=== PATIENT | male | born 2000 | race Caucasian/White ===

== ENCOUNTER 2021-07-06 06:06 | Observation (INO) ==
--- NOTE | 2021-07-06 06:22 | Emergency Department Note ---
Impression & Plan Chest pain, Elevated troponin, Acute viral myocarditis ED Provider Note Provider: Lokesh Olivier MD DATE OF SERVICE: 07/06/2021 CHIEF COMPLAINT: Chest pains HISTORY OF PRESENT ILLNESS: Patient is a 20-year-old otherwise healthy gentleman presenting here today reporting the onset of chest pain in the middle of his chest with fever and a cough and stuffy nose starting yesterday. Took some i buprofen around this morning without real improvement. 7 out of 10 pain. Nonpleuritic in nature. No other radiation reported of the pain. States he was tested for Covid yesterday but is unsure of the results at this time. Seen at urgent care for this but did not have other testing done. Reports no travel. States some myalgias in his legs at times. Pain started 2 days ago and central chest is worsened some since then. Having some sweats prickly at night night sweats over the last day or 2. Reports temperature as high 102.8 Fahrenheit. As you some ibuprofen at times with improvement of this. Denies nausea, vomiting, diarrhea, or abdominal pain. Denies shortness of breath. A little bit of a stuffy nose and some slight headaches at times. Patient reports his son has had a little bit of cold symptoms but is doing well. No other sick contacts reported. Patient reports he has been tossing and turning a little bit at night and not sleeping the best. No urinary symptoms reported. No rashes reported. REVIEW OF SYSTEMS: A total of 10 review of systems was obtained and negative except as stated above in the HPI. PAST MEDICAL HISTORY: As noted above MEDICATIONS: Occasionally [id number] allergy medicine. SOCIAL HISTORY: former smoker now Vaping trying to quit altogether PHYSICAL EXAM: GENERAL: alert and oriented in no acute distress on stretcher Head: normocephalic and atraumatic EYES: No injection, discharge or icterus. NECK: Trachea midline. Supple. ENT: Mucous membranes pink and moist. LUNGS: Airway patent. No retractions. Breath sounds clear with good air entry bilaterally. HEART: Regular rate and rhythm. No chest wall tenderness ABDOMEN: Soft and non-tender, without guarding or rebound. SKIN: Acyanotic, warm, dry, without rashes EXTREMITIES: Without swelling, tenderness or deformity. In particular there is no calf swelling or Homans' sign bilaterally. NEUROLOGICAL: No focal deficits. No aphasia. No facial droop or slurred speech. Ambulatory. EK bpm normal sinus rhythm. No PVC or PAC. No acute ST segment elevations or depression. QTC 408. CONTINUOUS CARDIAC MONITORING: was ordered and showed a heart rate of 80-100s bpm in NSR and sinurs tachycardia Patient's laboratory studies and imaging reviewed. Differential includes Cardiac ischemia, aortic dissection, pulmonary embolism, pneumothorax, pneumonia, pericarditis, myocarditis, esophageal rupture, GERD, cholecystitis, pancreatitis, musculoskeletal, as well as other pathologies. IMPRESSION/MEDICAL DECISION MAKING: Patient presents with 2 days of some central chest pain and fevers and myalgias with some stuffy nose and headache. Patient does not appear meningitic. Patient is afebrile upon arrival but took some ibuprofen several hours prior to arrival. Patient was tested for Covid yesterday at urgent care and supposedly a rapid test but did not receive the result. He reports to me that he does not think he has and is not vaccinated. Does not want retested at the current time. X-ray and basic labs were obtained. EKG is reassuring without concerning arrhythmia or real concerning ischemic findings. Chest pain has been present for 2 to 3 days and troponin was completed and should find any possible underlying cardiac injury. Given his risk factors I doubt this is ACS. Not having positional symptoms concerning for pericarditis. Given some IV fluids as he is just slightly tachycardic and a very small amount of Toradol has he has some pain. Chest x-ray per my review and radiology without evidence of pneumonia, pneumothorax, pleural effusion, pulmonary edema, mass, or cardiomegaly. Blood work without significant leukocytosis or anemia. Platelet count within normal limits. No significant electrolyte abnormality noted. AST slightly elevated at 44 but ALT within normal limits. Doubt acute hepatitis. Lipase normal and I doubt pancreatitis given this. Question some viral inflammatory changes causing the slightly elevated AST. Not having significant myalgias to be concerned for rhabdomyolysis at this time. Troponin returned elevated at 5.1. To exclude help exclude PE, a D-dimer was sent and positive as such a CT of the chest will be completed. CT negative for PE per radiology report. Patient again did not want Covid testing today as he had a pending test from yesterday. Discussed with him likely viral syndrome such as Covid is high on my list of likely diagnosis causing the symptoms. Given his positive troponin dis cussed with cardiology. Possibly could represent a myocarditis. He is hemodynamically stable. Discussed with the patient the need to complete Covid testing at this time and need for further evaluation care here at the hospital. Hospitalist was contacted. Cardiology was alerted although they were in the [facility] and will call back. They later agreed with this plan. Will defer empiric anticoagulation as I doubt ACS. Covid test later returns negative likely but entero-/rhinovirus is positive. Did initially updated patient's mother via phone with the findings recommendation for further care here. DIAGNOSIS: Chest pain, elevated troponin, viral myocarditis DISPOSITION: Hospitalist to evaluate Patient was agreeable with this plan. Critical Care I have personally spent 32 minutes of critical care time in the direct management of this patient. This includes bedside care, interpretation of diagnostic studies, and testing, discussion with consultants, patient, and family members, and other required patient management activities. These 32 minutes is in excess of all separately billable procedures. Past Med/Surg History Family History (Updated 07/06/21 @ 10:52 by DAMARIS Vergara) Other Family history non-contributory Social History Smoking Status: Current every day smoker Tobacco Type: E-cigarettes / Vaping Feels Safe at Home: Yes Allergies Allergies Allergy/AdvReac Type Severity Reaction Status Date / Time No Known Allergies Allergy Unknown Verified 07/06/21 08:25 Home Meds Home Medications Medication Instructions Recorded Confirmed No Known Home Medications 07/06/21 07/06/21 Results & Data (ED) Vital Signs Vital Signs - 24 hr 07/06/21 06:09 07/06/21 06:22 07/06/21 06:30 Temperature 36.9 C Temperature Source Oral Pulse Rate 103 H 87 Pulse Rate from SpO2 Sensor 88 Respiratory Rate 16 12 Respiratory Effort / Characteristics Non-Labored Spontaneous Respiratory Depth Normal Blood Pressure 124/81 126/78 Blood Pressure Mean 95 94 Pulse Oximetry 97 98 99 Oxygen Delivery Method Room Air Room Air Room Air Sepsis Recent Fever Within 48 Hours No Sepsis New/Unexplained Change in Mental Status No Sepsis Action Taken by Nursing No Action Required 07/06/21 07:00 07/06/21 07:30 07/06/21 08:01 Temperature Temperature Source Pulse Rate 87 78 Pulse Rate from SpO2 Sensor 70 88 78 Respiratory Rate 20 20 Respiratory Effort / Characteristics Respiratory Depth Blood Pressure 119/76 118/76 119/88 Blood Pressure Mean 90 90 98 Pulse Oximetry 99 100 97 Oxygen Delivery Method Room Air Room Air Room Air Sepsis Recent Fever Within 48 Hours Sepsis New/Unexplained Change in Mental Status Sepsis Action Taken by Nursing 07/06/21 08:30 07/06/21 09:00 Temperature Temperature Source Pulse Rate 80 86 Pulse Rate from SpO2 Sensor 82 83 Respiratory Rate 22 21 Respiratory Effort / Characteristics Respiratory Depth Blood Pressure 125/84 133/91 Blood Pressure Mean 97 105 Pulse Oximetry 99 98 Oxygen Delivery Method Room Air Room Air Sepsis Recent Fever Within 48 Hours Sepsis New/Unexplained Change in Mental Status Sepsis Action Taken by Nursing Laboratory Data Result diagrams: 07/06/21 Unknown 07/06/21 Unknown Lab Results 07/06/21 07/06/21 07/06/21 Range/Units 06:45 09:52 09:52 ESR 36 H (0-15) mm/hr Adenovirus (PCR) Not Detected (NotDetected) B. pertussis DNA (PCR) Not Detected (NotDetected) B.parapertussis DNA PCR Not Detected (NotDetected) C. pneumoniae DNA (PCR) Not Detected (NotDetected) Coronavirus OC43 (PCR) Not Detected (NotDetected) Coronavirus HKU1 (PCR) Not Detected (NotDetected) Coronavirus 229E (PCR) Not Detected (NotDetected) COVID-19 Eval Order RESPNP at [facility] SARS-CoV-2 (PCR) Not Detected (NotDetected) Coronavirus NL63 (PCR) Not Detected (NotDetected) Human Metapneumovir PCR Not Detected (NotDetected) Influenza Type A (PCR) Not Detected (NotDetected) Influenza Type B (PCR) Not Detected (NotDetected) M. pneumoniae (PCR) Not Detected (NotDetected) Parainfluenza 1 (PCR) Not Detected (NotDetected) Parainfluenza 2 (PCR) Not Detected (NotDetected) Parainfluenza 3 (PCR) Not Detected (NotDetected) Parainfluenza 4 (PCR) Not Detected (NotDetected) RSV (PCR) Not Detected (NotDetected) Entero/Rhino (PCR) DETECTED A* (NotDetected) Administered Medications Pantoprazole Sodium (Pantoprazole 40 Mg Tab) 40 mg PO DAILY SHANIKA Stop: 10/10/21 10:59 Last Admin: 07/06/21 11:13 Dose: 40 mg Documented by: [id number] Discontinued Medications Sodium Chloride (Nss 1000ml) 1,000 mls @ 999 mls/hr IV .Q1H1M ONE Stop: 07/06/21 07:33 Last Infusion: 07/06/21 07:45 Dose: 0 mls/hr Documented by: [id number] Admin: 07/06/21 06:42 Dose: 999 mls/hr Documented by: [id number] Ibuprofen (Ibuprofen 800 Mg Tab) 800 mg PO NOW STA Stop: 07/06/21 10:25 Last Admin: 07/06/21 11:12 Dose: 800 mg Documented by: [id number] Ioversol (Optiray 320 125ml) 119 ml IV ONCE ONE Stop: 07/06/21 09:36 Last Admin: 07/06/21 09:36 Dose: 119 ml Documented by: [id number] Ketorolac Tromethamine (Ketorolac Tromethamine 15 Mg/Ml Vial) 10 mg IV NOW ONE Stop: 07/06/21 06:34 Last Admin: 07/06/21 06:42 Dose: 10 mg Documented by: [id number] Imaging Data Radiologist's Impression: Chest X-Ray 07/06/21 06:22 XR chest 1V portable INDICATION: MN ^Y ^Chest Pain . TECHNIQUE: Single frontal radiograph of the chest was obtained. Comparison: None available at the time of this dictation. FINDINGS: No lines and tubes are seen. The cardiomediastinal silhouette is normal. The lungs are clear. No evidence of pleural effusion or pneumothorax. IMPRESSION: No acute chest disease. ACT 112: Negative or not required by law. Electronically signed by: Estevan Butler M.D. 07/06/2021 7:02 AM Chest CTA 07/06/21 08:08 CT angio chest PE protocol INDICATION: MN ^b4b ^PE, CP, Elevated trop and dimer. TECHNIQUE: Multidetector row helical CT of the chest was performed. Coronal and sagittal reformations were obtained. Automated dose lowering techniques and/or adjustment according to patient size were utilized for this exam. Comparison: None available at the time of this dictation. FINDINGS: Lungs and pleura: Normal. Heart and pericardium: Heart size is normal. No pericardial effusion. Vessels: No evidence of pulmonary embolism. Mediastinum and charlette: Unremarkable. Chest wall and lower neck: Subcentimeter thyroid nodules are noted which do not require follow-up by ACR criteria. Abdomen: Unremarkable. Bones: Degenerative changes in the thoracic spine. IMPRESSION: No evidence of pulmonary embolism. ACT 112: Negative or not required by law. Electronically signed by: Estevan Butler M.D. 07/06/2021 10:16 AM Discharge Plan Visit Data Chief Complaint: Chest Pain Stated Complaint: CHEST PAIN ED Provider: Lokesh Olivier Discharge Problem: Chest pain, Elevated troponin, Acute viral myocarditis Patient Disposition: Being Evaluated by Hospitalist Discharge Instructions Interventions: ED Discharge Assessment Last Done: 07/06/21 13:24
[2021-07-06] MEDS ORDERED: KETOROLAC TROMETHAMINE 15 MG/ML VIAL IV ONE (06:33)
[2021-07-06] MEDS ORDERED: SODIUM CHLORIDE 0.9% 1000ML 1,000 ML IV ONE (06:33)
[2021-07-06 06:53] LABS: Basophils # (auto) 0.02 K/uL (0-0.2); Basophils % (auto) 0.2 %; Hematocrit (blood only) 44.5 % (42-52); Hemoglobin 15.2 g/dL (14.0-18.0); Immature Granulocytes # (auto) 0.03 K/uL (0.00-0.02); Immature Granulocytes % (auto) 0.3 %; Lymphocytes # (auto) 1.42 K/uL (1.2-3.4); Lymphocytes % (auto) 14.7 %; Mean Corpuscular Hemoglobin 29.6 pg (25-34); Mean Corpuscular Hgb Conc 34.2 g/dL (32-36); Mean Corpuscular Volume 86.7 fL (80-100); Mean Platelet Volume 9.5 fL (7.4-10.4); Monocytes # (auto) 1.37 K/uL (0.11-0.59); Monocytes % (auto) 14.2 %; Neutrophils # (auto) 6.69 K/uL (1.4-6.5); Neutrophils % (auto) 69.6 %; Platelet Count 266 K/uL (130-400); RDW Coefficient of Variation 12.5 % (11.5-14.5); RDW Standard Deviation 39.9 fL (36.4-46.3); Red Blood Count 5.13 M/uL (4.7-6.1); White Blood Count 9.63 K/uL (4.8-10.8)
[2021-07-06 07:00] LABS: Albumin Level 3.5 gm/dl (3.4-5.0); BUN Creatinine Ratio 12.2 (10-20); Calcium 8.7 mg/dl (8.5-10.1); Est GFR (African American) 109.8 ml/min; Est GFR (Non-African American) 94.7 ml/min; Potassium 3.8 mmol/L (3.5-5.1)
--- NOTE | 2021-07-06 07:04 | XRay Report ---
XR chest 1V portable INDICATION: MN ^Y ^Chest Pain . TECHNIQUE: Single frontal radiograph of the chest was obtained. Comparison: None available at the time of this dictation. FINDINGS: No lines and tubes are seen. The cardiomediastinal silhouette is normal. The lungs are clear. No evid ence of pleural effusion or pneumothorax. IMPRESSION: No acute chest disease. ACT 112: Negative or not required by law. Electronically signed by: Estevan Butler M.D. 07/06/2021 7:02 AM
[2021-07-06 07:16] LABS: Albumin Globulin Ratio 0.9 (0.9-2); Bilirubin,Total 0.6 mg/dl (0.2-1); Total Protein 7.5 gm/dl (6.4-8.2); Troponin I 5.14 ng/ml (0-0.045)
[2021-07-06 08:06] LABS: Prothrombin Time 10.4 Seconds (9.0-12.0)
[2021-07-06 08:08] LABS: D Dimer 900 ug/L FEU (0-500)
[2021-07-06] MEDS ORDERED: OPTIRAY 320 125ml IV ONE (09:35)
--- NOTE | 2021-07-06 10:17 | CT Scan Report ---
CT angio chest PE protocol INDICATION: MN ^b4b ^PE, CP, Elevated trop and dimer. TECHNIQUE: Multidetector row helical CT of the chest was performed. Coronal and sagittal reformations were obtained. Automated dose lowering techniques and/or adjustment according to patient size were u tilized for this exam. Comparison: None available at the time of this dictation. FINDINGS: Lungs and pleura: Normal. Heart and pericardium: Heart size is normal. No pericardial effusion. Vessels: No evidence of pulmonary embolism. Mediastinum and charlette: Unremarkable. Chest wall and lower neck: Subcentimeter thyroid nodules are noted which do not require follow-up by ACR criteria. Abdomen: Unremarkable. Bones: Degenerative changes in the thoracic spine. IMPRESSION: No evidence of pulmonary embolism. ACT 112: Negative or not required by law. Electronically signed by: Estevan Butler M.D. 07/06/2021 10:16 AM
[2021-07-06] MEDS ORDERED: IBUPROFEN 800 MG TAB PO STA (10:24)
--- NOTE | 2021-07-06 10:59 | History & Physical Report ---
Date of Service July 06, 2021 Assessment & Plan (1) Chest pain: Plan: Pain in center of his chest sharp stabbing, improves with leaning forward viral pericarditis/myocarditis vs. rheumatologic vs. autoimmune - Motrin 800 mg PO now and then 800 mg PO TID scheduled - PPI while on NSAID - ESR slightly elevated, CRP- 6.87 - COVID- pending - BIOfire pending - WBC 9.63 with NLR: 3.5:1 - Monospot-rapid negative - Lyme pending - ECHO pending - NO abnormalities in hematologic cell lines noted at this time (2) Elevated troponin: Plan: As above - Add on CK - Troponin q6 with ECG - ECHO - Cardiology consult (3) DVT prophylaxis: Plan: SCDs and ambulation History of Present Illness Chief Complaint: Chest pain Primary Care Provider: hBarath Camarena MD 20 YOM with medical history of: back pain. Patient comes to the [facility] today for complaints of chest pain. The pain is located in the center of his chest and feels like a sharp stabbing pain, this does not get worse with activity, and at times worsens with deep inspiration. It was relieved with him leaning forward and decreased his pain from a 7 to a 1-2. He also took some Motrin last PM 500mg prior to bed that also decreased his pain and again at ~0500 this morning. Patient endorses some URI nasal congestion and drainage over the past week that also increased about 3-4 days ago and seems to be improving now. He has no other swollen or sore joints except for some chronic back pain that he has had for years. He has no recent travel. He has a son at home that had a slight fever last week but was also teething at that time. He lives with his parents and no one else is sick or having any symptoms that he knows of. 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 He doesn't know of anyone else there that is sick. He has no pets, and does not go out in the wilderness or noticed any ticks or other insect bites. He does not have his COVID vaccine. In the [facility] the patient had routine labs drawn to include a D- dimer, and Troponin. Troponin I was elevated at 5 and his D-dimer was elevated to 900, he had a CTA of the chest done, which did not have any acute PE or effusion, or enlarged lymph nodes. He had a ECG done with no dynamic changes. Hospitalist service was notified for admission. Patient had an ECHO performed in 2013- seems to be performed for syncope: that was normal without intracardiac defect or coarctation noted.Will obtain ECHO, added on respiratory viral panel to COVID, ESR, CRP pending, and monospot/EBV and Lyme. Patient will be placed on telemetry and continue work up. Will add Motrin 800mg PO now and then TID with PPI. Cardiology was consulted via [facility] Physician. Patient is not vaccinated for COVID and his COVID test on admission was negati ve. Allergies Allergy/AdvReac Type Severity Reaction Status Date / Time No Known Allergies Allergy Unknown Verified 07/06/21 08:25 Home Medications Medication Instructions Recorded Confirmed Type No Known Home Medications 07/06/21 07/06/21 History Past Med/Surg History Family History (Updated 07/06/21 @ 10:52 by DAMARIS Vergara) Other Family history non-contributory Social History Smoking Status: Current every day smoker Tobacco Type: E-cigarettes / Vaping Feels Safe at Home: Yes Review of Systems Review of Systems: REVIEW OF SYSTEMS: Constitutional: (+) fever, sweats or chills Eyes: No diplopia, no worsening or blurred vision ENT: (+) nasal congestion, normal hearing, no trouble swallowing Respiratory: No cough, sputum, dyspnea at rest or on exertion Cardiovascular: (+) chest pain, tightness or palpitations Abdomen: No pain, nausea, vomiting, diarrhea or constipation Musculoskeletal: No joint pain, calf pain, swelling Neurologic: No weakness, numbness/tingling, or balance problems Psychiatric: No anxiety or depression Skin: No rash or itch Physical Exam Physical Exam: PHYSICAL EXAM: General: awake, alert, no apparent distress Head: Normocephalic, atraumatic ENT: PERRLA, EOMI, no pharyngeal exudate, mucous membranes moist, no enlarged cervical lymphnoeds Neuro: AAO x 3, speech clear and appropriate, strength intact bilaterally 5/5, sensation intact and equal all extremities and dermatomes, no pronator drift Chest: equal rise and fall of the chest, no accessory muscle use, no heaves or thrills, Clear to auscultation, on room air, Cardiac: Regular rate and rhythm, telemetry reviewed-NSR no ectopy, S1S2 NO murmurs/rubs, skin warm dry, cap refill <3 seconds, peripheral pulses +2 no JVD, no edema GI: NABS x 4 quadrants, soft, nontender to palpation, no rebound, guarding or tenderness : Spontaneously voiding, no pain, no CVA tenderness Extremities: Normal inspection, no peripheral edema or erythema, calfs nontender to palpation Psych: Normal mood and affect Skin: no rash or erythema Results & Data Results & Data ([facility]) Vital Signs (Past 12 Hours) Vital Signs Temp Pulse Resp BP Pulse Ox 07/06/21 07:30 87 20 118/76 100 07/06/21 07:00 119/76 99 07/06/21 06:30 87 12 126/78 99 07/06/21 06:22 98 07/06/21 06:09 36.9 C 103 H 16 124/81 97 Laboratory Results Abnormal Labs 07/06/21 07/06/21 07/06/21 06:45 Unknown Unknown Neut # (Auto) 6.69 H [place] # (Auto) 1.37 H Immature Gran # (Auto) 0.03 H ESR 36 H D-Dimer 900 H* Glucose AST Troponin I C-Reactive Protein 07/06/21 07/06/21 Unknown Unknown Neut # (Auto) [place] # (Auto) Immature Gran # (Auto) ESR D-Dimer Glucose 119 H AST 44 H Troponin I 5.140 H* C-Reactive Protein 6.87 H Diagnostic Findings Chest X-Ray 07/06/21 06:22 XR chest 1V portable INDICATION: MN ^Y ^Chest Pain . TECHNIQUE: Single frontal radiograph of the chest was obtained. Comparison: None available at the time of this dictation. FINDINGS: No lines and tubes are seen. The cardiomediastinal silhouette is normal. The lungs are clear. No evidence of pleural effusion or pneumothorax. IMPRESSION: No acute chest disease. ACT 112: Negative or not required by law. Electronically signed by: Estevan Butler M.D. 07/06/2021 7:02 AM Chest CTA 07/06/21 08:08 CT angio chest PE protocol INDICATION: MN ^b4b ^PE, CP, Elevated trop and dimer. TECHNIQUE: Multidetector row helical CT of the chest was performed. Coronal and sagittal reformations were obtained. Automated dose lowering techniques and/or adjustment according to patient size were utilized for this exam. Comparison: None available at the time of this dictation. FINDINGS: Lungs and pleura: Normal. Heart and pericardium: Heart size is normal. No pericardial effusion. Vessels: No evidence of pulmonary embolism. Mediastinum and charlette: Unremarkable. Chest wall and lower neck: Subcentimeter thyroid nodules are noted which do not require follow-up by ACR criteria. Abdomen: Unremarkable. Bones: Degenerative changes in the thoracic spine. IMPRESSION: No evidence of pulmonary embolism. ACT 112: Negative or not required by law. Electronically signed by: Estevan Butler M.D. 07/06/2021 10:16 AM Medications Administered Discontinued Medications Sodium Chloride (Nss 1000ml) 1,000 mls @ 999 mls/hr IV .Q1H1M ONE Stop: 07/06/21 07:33 Last Infusion: 07/06/21 07:45 Dose: 0 mls/hr Documented by: [id number] Admin: 07/06/21 06:42 Dose: 999 mls/hr Documented by: [id number] Ioversol (Optiray 320 125ml) 119 ml IV ONCE ONE Stop: 07/06/21 09:36 Last Admin: 07/06/21 09:36 Dose: 119 ml Documented by: [id number] Ketorolac Tromethamine (Ketorolac Tromethamine 15 Mg/Ml Vial) 10 mg IV NOW ONE Stop: 07/06/21 06:34 Last Admin: 07/06/21 06:42 Dose: 10 mg Documented by: [id number] ECG Additional Comments: Normal sinus rhythm Early repolarization Normal ECG No previous ECGs available Code Status & VTE Plan Code Status CODE: FULL VTE: SCDs, ambulation VTE Prophylaxis Plan VTE Prophylaxis will be ordered: Yes Supervising Physician Co-Signing Physician Notes Patient seen and examined, chart reviewed, case discussed with Dru OCAMPO and I agree with the assessment and plan as above except as otherwise noted above. Jas is a 20-year-old male who presents with approximately 3 days of central chest pain which improved in the tripod position and some cold-like symptoms. No history of rheumatologic or autoimmune diseases. He has a son who was recently ill but thinks it may have been due to teething with molars coming in. No other sick contacts. He is not vaccinated against Covid. General: A&Ox3. NAD. Cooperative. HEENT: Atraumatic, normocephalic. Pulm: CTAB A&P. -wheezes, -rales, -rhonchi. Symmetrical chest rise. No increase work of breathing. No respiratory distress. Cardiac: RRR, -mrg. Radial pulses intact and symmetrical. Abdominal: Nontender, nondistended, soft. BS present. All labs and images reviewed Amadou is a 20-year-old male who presents with 3 days of cold-like symptoms and chest pain consistent with viral pericarditis/myocarditis with an elevated D-dimer and troponin. CTA negative for PE and without signs of pneumonia. Covid test negative on admission, viral panel positive for enterovirus/rhinovirus. Echo pending, troponin trended, EKG without ST segment changes, NSR. Patient to be observed overnight, follow troponin and echo results. Ibuprofen 800 mg 3 times daily until pain improves then taper over 2-4 weeks. Gastric prophylaxis with Protonix on admission. Recommend dual treatment NSAID plus colchicine given elevated troponin suggestive of additional myocarditis. Colchicine 1 mg every 12 hours, followed by 0.5 mg twice daily. PG Care Time/CCT Total # of Minutes Spent Total Time Spent with Patient: Total time spent is greater than 50% in coordination of care (as documented) at patient's floor/unit and/or counseling patient: Coding Level of Care Code INT OBSERVATION CARE 70M LVL 3 Diagnoses Elevated troponin R77.8 Chest pain R07.9 Chest pain type: unspecified DVT prophylaxis Z29.9 (1) Chest pain Chest pain type: unspecified Qualified Code(s): R07.9 - Chest pain, unspecified
[2021-07-06] MEDS: PANTOprazole 40 MG TAB PO SCH (11:13)
[2021-07-06 11:25] LABS: Adenovirus PCR Not Detected (NotDetected); Bordetella parapertussis PCR Not Detected (NotDetected); Bordetella pertussis PCR Not Detected (NotDetected); Chlamydia pneumoniae PCR Not Detected (NotDetected); Coronavirus 229E PCR Not Detected (NotDetected); Coronavirus CoV-2 (COVID19)PCR Not Detected (NotDetected); Coronavirus HKU1 PCR Not Detected (NotDetected); Coronavirus NL63 PCR Not Detected (NotDetected); Coronavirus OC43PCR Not Detected (NotDetected); Human Metapneumovirus PCR Not Detected (NotDetected); Influenza A PCR Not Detected (NotDetected); Influenza B PCR Not Detected (NotDetected); Mycoplasma pneumoniae PCR Not Detected (NotDetected); Parainfluenza Virus 1 PCR Not Detected (NotDetected); Parainfluenza Virus 2 PCR Not Detected (NotDetected); Parainfluenza Virus 3 PCR Not Detected (NotDetected); Parainfluenza Virus 4 PCR Not Detected (NotDetected); Respiratory Syncytial VirusPCR Not Detected (NotDetected)
[2021-07-06 11:46] LABS: Rhinovirus/Enterovirus PCR DETECTED (NotDetected)
--- NOTE | 2021-07-06 13:55 | XCELERA ---
[id number]
[2021-07-06] MEDS ORDERED: ONDANSETRON INJ 2 MG/ML 2 ML VIAL IV PRN (13:58)
[2021-07-06 15:53] LABS: Lyme Ab IgG w/WB Rflx Negative (Negative); Lyme Ab IgM w/WB Rflx Negative (Negative)
[2021-07-06] MEDS: COLCHICINE 0.6 MG TAB PO SCH ×2 (15:54→21:29)
--- NOTE | 2021-07-06 18:00 | Electrocardiogram Report ---
Test Reason : Blood Pressure : / mmHG Vent. Rate : 081 BPM Atrial Rate : 081 BPM P-R Int : 162 ms QRS Dur : 094 ms QT Int : 352 ms P-R-T Axes : 047 038 036 degrees QTc Int : 408 ms Poor data quality, interpretation may be adversely affected Normal sinus rhythm Early repolarization Normal ECG No previous ECGs available Confirmed by Yifan Nails ([id number]) on 07/06/2021 6:00:34 PM Referred By: REFERRED SELF Confirmed By:Len Nails
[2021-07-06] MEDS: IBUPROFEN 800 MG TAB PO SCH (19:51)
[2021-07-07] MEDS: IBUPROFEN 800 MG TAB PO SCH (05:56)
[2021-07-07 06:32] LABS: Basophils # (auto) 0.02 K/uL (0-0.2); Basophils % (auto) 0.3 %; Eosinophils # (auto) 0.18 K/uL (0-0.5); Eosinophils % (auto) 2.7 %; Hematocrit (blood only) 42.5 % (42-52); Hemoglobin 14.3 g/dL (14.0-18.0); Immature Granulocytes # (auto) 0.01 K/uL (0.00-0.02); Immature Granulocytes % (auto) 0.2 %; Lymphocytes # (auto) 1.88 K/uL (1.2-3.4); Lymphocytes % (auto) 28.4 %; Mean Corpuscular Hemoglobin 29.5 pg (25-34); Mean Corpuscular Hgb Conc 33.6 g/dL (32-36); Mean Corpuscular Volume 87.8 fL (80-100); Mean Platelet Volume 9.6 fL (7.4-10.4); Monocytes # (auto) 1.21 K/uL (0.11-0.59); Monocytes % (auto) 18.3 %; Neutrophils # (auto) 3.32 K/uL (1.4-6.5); Neutrophils % (auto) 50.1 %; Platelet Count 261 K/uL (130-400); RDW Coefficient of Variation 12.6 % (11.5-14.5); RDW Standard Deviation 40.7 fL (36.4-46.3); Red Blood Count 4.84 M/uL (4.7-6.1); White Blood Count 6.62 K/uL (4.8-10.8)
[2021-07-07 07:03] LABS: BUN Creatinine Ratio 13.3 (10-20); Calcium 8.7 mg/dl (8.5-10.1); Creatinine Clr Calc Pharmacy 116.1 ml/min; Est GFR (African American) 113.4 ml/min; Est GFR (Non-African American) 97.9 ml/min; Magnesium 2.2 mg/dl (1.8-2.4); Potassium 3.9 mmol/L (3.5-5.1)
[2021-07-07] MEDS: PANTOprazole 40 MG TAB PO SCH (08:09)
[2021-07-07] MEDS ORDERED: COLCHICINE 0.6 MG TAB PO SCH (09:00)
--- NOTE | 2021-07-07 12:13 | Electrocardiogram Report ---
Test Reason : Blood Pressure : / mmHG Vent. Rate : 082 BPM Atrial Rate : 082 BPM P-R Int : 152 ms QRS Dur : 090 ms QT Int : 360 ms P-R-T Axes : 020 039 033 degrees QTc Int : 420 ms Normal sinus rhythm Early repolarization Normal ECG When compared with ECG of 06-JUL-2021 06:16, No significant change was found Confirmed by Samy Navarro ([id number]) on 07/07/2021 12:13:03 PM Referred By: REFERRED SELF Confirmed By:Samy Navarro
[2021-07-07] MEDS ORDERED: IBUPROFEN 800 MG TAB PO SCH (14:00)
--- NOTE | 2021-07-07 20:58 | Discharge Summary ---
Date of Service July 07, 2021 Admission HPI Per Admitting Provider 20 YOM with medical history of: back pain. Patient comes to the EMD today for complaints of chest pain. The pain is located in the center of his chest and feels like a sharp stabbing pain, this does not get worse with activity, and at times worsens with deep inspiration. It was relieved with him leaning forward and decreased his pain from a 7 to a 1-2. He also took some Motrin last PM 500mg prior to bed that also decreased his pain and again at ~0500 this morning. Patient endorses some URI nasal congestion and drainage over the past week that also increased about 3-4 days ago and seems to be improving now. He has no other swollen or sore joints except for some chronic back pain that he has had for years. He has no recent travel. He has a son at home that had a slight fever last week but was also teething at that time. He lives with his parents and no one else is sick or having any symptoms that he knows of. 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 He doesn't know of anyone else there that is sick. He has no pets, and [facility] or noticed any ticks or other insect bites. He does not have his COVID vaccine. In the EMD the patient had routine labs drawn to include a D- dimer, and Troponin. Troponin I was elevated at 5 and his D-dimer was elevated to 900, he had a CTA of the chest done, which did not have any acute PE or effus ion, or enlarged lymph nodes. He had a ECG done with no dynamic changes. Hospitalist service was notified for admission. Patient had an ECHO performed in 2013- seems to be performed for syncope: that was normal without intracardiac defect or coarctation noted.Will obtain ECHO, added on respiratory viral panel to COVID, ESR, CRP pending, and monospot/EBV and Lyme. Patient will be placed on telemetry and continue work up. Will add Motrin 800mg PO now and then TID with PPI. Cardiology was consulted via EMD Physician. Patient is not vaccinated for COVID and his COVID test on admission was negative. Admission Exam (Per Admitting) Constitutional General: awake, alert, no apparent distress Head: Normocephalic, atraumatic ENT: PERRLA, EOMI, no pharyngeal exudate, mucous membranes moist, no enlarged cervical lymphnoeds Neuro: AAO x 3, speech clear and appropriate, strength intact bilaterally 5/5, sensation intact and equal all extremities and dermatomes, no pronator drift Chest: equal rise and fall of the chest, no accessory muscle use, no heaves or thrills, Clear to auscultation, on room air, Cardiac: Regular rate and rhythm, telemetry reviewed-NSR no ectopy, S1S2 NO murmurs/rubs, skin warm dry, cap refill <3 seconds, peripheral pulses +2 no JVD, no edema GI: NABS x 4 quadrants, soft, nontender to palpation, no rebound, guarding or tenderness : Spontaneously voiding, no pain, no CVA tenderness Extremities: Normal inspection, no peripheral edema or erythema, calfs nontender to palpation Psych: Normal mood and affect Skin: no rash or erythema Discharge Data Consultations 07/06/21 09:41 ED Decision to Admit Stat Hospital Course (1) Acute viral myocarditis: 20 year old male admitted with viral pericarditis. Biofire positive for enterovirus/rhinovirus. COVID negative. Received motrin 800mg PO and colchicine 0.6mg BID with improvement in symptoms. PPI was given to gastric protection. He will continue Motrin for 1 week. Discussed with him that he will need to continue colchicine for 3 months. Troponin initially elevated and has since downtrended. CK normal. Transthoracic echo was normal. Follow up with PCP in 1 week. Called and discussed plan of care with patient's mother. I personally spent 35 minutes discharge planning for this patient.
[2021-07-09 12:03] LABS: EBV Nuclear Ag Antibody >600.00 U/mL
== END 2021-07-07 12:07 | disposition home or self-care (01) ==
LOC: ED 06:06 → 2N 06:06 → SUATTDRO 10:32 → 2N 13:24